=== PATIENT | female | born 1980 | race Caucasian/White ===

== ENCOUNTER 2020-07-30 05:57 | Emergency (ER) | payer OTHER, SELFPAY ==
[2020-07-30 06:14] VITALS: BP 135/92; PULSE 96; RESP 18; TEMP 36.6; O2SAT 96
--- NOTE | 2020-07-30 06:20 | ED.GENADULT ---
HPI - General Adult General Chief complaint: Eye Problems Stated complaint: something in eye Time Seen by Provider: 07/30/20 06:08 History of Present Illness HPI narrative: Patient is a 39-year-old female presents to the emergency department with chief complaint of right eye pain. Patient states that she woke up with pain in her right eye states that it feels as though something was scratching her eye patient states that she may have something in her eye. Patient states that her vision is normal but the eye is extremely painful. Patient denies fever denies runny nose denies illness. Related Data Allergies Allergy/AdvReac Type Severity Reaction Status Date / Time No Known Allergies Allergy Unverified 09/17/18 13:15 Review of Systems Review of Systems: Narrative: A 10 system review of systems was completed on the patient and is negative except for what is stated in the HPI. Nursing and ancillary documentation was reviewed. PMFSH Comments Patient has no significant past medical history Social history the patient denies illicit drug use but reports that she smokes cigarettes Exam Narrative: Exam Narrative: GENERAL: Well-appearing, well-nourished, and in no acute distress. HEAD: Normocephalic, atraumatic. EYES: PERRLA and EOMI, there is a small corneal abrasion present at the 4 o'clock position. ENT: Nares clear, no rhinorrhea or epistaxis. Mucous membranes moist. NECK: Supple. CHEST: Clear to auscultation. No respiratory distress. HEART: Regular rate and rhythm. No murmur heard. Normal peripheral pulses. ABDOMEN: Soft, nontender, nondistended, normal active bowel sounds. EXTREMITIES: Normal range of motion. No edema. SKIN: Warm, dry, no rash. NEURO: No focal deficits. Alert and oriented x3. PSYCH: Normal mood and affect. Course Vital Signs Vital signs: Vital Signs Temperature 36.6 C 07/30/20 06:14 Pulse Rate 96 07/30/20 06:14 Respiratory Rate 18 07/30/20 06:14 Blood Pressure 135/92 H 07/30/20 06:14 Pulse Oximetry 96 07/30/20 06:14 Temperature 36.6 C 07/30/20 06:14 Pulse Rate 96 07/30/20 06:14 Respiratory Rate 18 07/30/20 06:14 Blood Pressure 135/92 H 07/30/20 06:14 Pulse Oximetry 96 07/30/20 06:14 Medical Decision Making Vital Signs Vital Signs: Vital Signs Temperature 36.6 C 07/30/20 06:14 Pulse Rate 96 07/30/20 06:14 Respiratory Rate 18 07/30/20 06:14 Blood Pressure 135/92 H 07/30/20 06:14 Pulse Oximetry 96 07/30/20 06:14 Temperature 36.6 C 07/30/20 06:14 Pulse Rate 96 07/30/20 06:14 Respiratory Rate 18 07/30/20 06:14 Blood Pressure 135/92 H 07/30/20 06:14 Pulse Oximetry 96 07/30/20 06:14 Discharge Plan Discharge Clinical Impression: Corneal abrasion Qualifiers: Encounter type: initial encounter Laterality: right Qualified Code(s): S05.01XA - Injury of conjunctiva and corneal abrasion without foreign body, right eye, initial encounter Patient Disposition: Home, Self-Care Condition: Stable Instructions: Antibiotic Form, Corneal Abrasion (ED) Additional Instructions: Please follow-up with an screw eye assembler in the next 24 to 48 hours [place] [id number], [place] [address] Prescriptions: New gentamicin 0.3 % drops 2 drp EACH EYE Q4H Qty: 5 RF: 0 No Action amoxicillin-pot clavulanate [Augmentin] 875-125 mg tablet 1 tablet PO Q12H 10 Days Qty: 20 RF: 0 Follow-up/Referrals: PHYSICIAN,ASSET PROTECTION SPECIALIST [Primary Care Provider] - Time of Disposition: 06:22
[2020-07-30] MEDS: GENTAMICIN SULFATE 0.3% OP SOL 5 ML BTL 2 DROP RIGHT EYE (06:26)
== END 2020-07-30 06:50 | disposition home or self-care (01) ==
PROVIDERS: Emergency Provider Emergency Medicine
DX: S05.01XA Injury of conjunctiva and corneal abrasion without foreign body, right eye, initial encounter (principal); F17.210 Nicotine dependence, cigarettes, uncomplicated; X58.XXXA Exposure to other specified factors, initial encounter
CPT/HCPCS: 99283; A9270

== ENCOUNTER 2021-09-19 23:16 | Inpatient (IN) | payer OTHER, SELFPAY ==
--- NOTE | ~2021-09-19 | US_ITS ---
EXAMINATION: US venous doppler [facility] DATE: 09/20/2021 08:21 INDICATION: Lower limb swelling. TECHNIQUE: Grayscale ultrasound images without and with compression and Doppler ultrasound images of the bilateral lower extremity veins were obtained. COMPARISON: None. FINDINGS: The visualized portions of right common femoral vein, profunda (deep) femoral vein, femoral vein, pop liteal vein, peroneal veins, posterior tibial veins, and greater saphenous vein outflow are patent. The visualized portions of left common femoral vein, profunda femoral vein, femoral vein, popliteal v ein, peroneal veins, posterior tibial veins, and greater saphenous vein outflow are patent. IMPRESSION: 1. No deep venous thrombosis. Reviewed, dictated and finalized at location A.
--- NOTE | ~2021-09-19 | XR_ITS ---
EXAMINATION: XR chest 1V portable DATE: 09/20/2021 05:47 INDICATION: Fever. TECHNIQUE: A single frontal view of the chest was obtained. COMPARISON: None. FINDINGS: A calcified right lung nodule is consistent with old granulomatous disease. No pleural effu letty or pneumothorax. The heart size is normal. IMPRESSION: 1. No acute cardiopulmonary disease. Reviewed, dictated and finalized at location A.
[2021-09-19 23:30] VITALS: BP 104/64; PULSE 82; RESP 12; TEMP 36.7; O2SAT 100
[2021-09-19 23:44] VITALS: BP 108/72; PULSE 90; RESP 12; O2SAT 100
[2021-09-19 23:45] VITALS: PULSE 84; RESP 12; O2SAT 100
[2021-09-19 23:46] VITALS: BP 106/66; PULSE 85; RESP 12; O2SAT 100
--- NOTE | 2021-09-19 23:57 | ED.EXTPRO ---
HPI - Extremity Problem General Chief complaint: Extremity Problem,Nontraumatic Stated complaint: insect bite Time Seen by Provider: 09/19/21 23:27 Source: patient Mode of arrival: ambulatory Limitations: no limitations History of Present Illness HPI Narrative: 40-year-old female presents emergency room secondary to redness, swelling, and pain to her right leg. She states that been going on for about 5 days. She had been on antibiotics given her by her physician for 4 days. She is on clindamycin 300 mg. Despite this she is continue to have swelling and redness of the leg which is gotten worse. She states she is never had anything like this before. She also has a open ulcerative type lesion on her left lower extremity which is got a little bit of drainage and very erythematous as well. She is not having any chills or fevers. She denies any history of recurrent cellulitis in the past. Patient does admit to a history of IV drug use. She states she had been on Suboxone but she ran out and she did do some IV narcotics about 2 days ago. She denies ever injecting in her legs. She denies any cough or congestion. She has no other medical problems other than anxiety Related Data Home Medications Medication Instructions Recorded Confirmed alprazolam 1 mg PO BID 09/19/21 09/19/21 buprenorphine-naloxone 1 film BUCCAL TID 09/19/21 09/19/21 doxepin 10 mg PO DAILY 09/20/21 09/20/21 Allergies Allergy/AdvReac Type Severity Reaction Status Date / Time No Known Allergies Allergy Verified 09/20/21 03:24 Review of Systems Review of Systems: CONSTITUTIONAL: Denies fever, chills, or sweats. EYES: Denies visual changes, redness, or discharge. ENT: Denies rhinorrhea, congestion, sore throat, or otalgia. CARDIOVASCULAR: Denies chest pain, palpitations, or edema. RESPIRATORY: Denies cough or dyspnea. GASTROINTESTINAL: Denies abdominal pain, nausea, vomiting, or diarrhea. GENITOURINARY: Denies dysuria or hematuria. SKIN: Rash, redness, swelling to the legs MUSCULOSKELETAL: Denies back pain, joint pain, or myalgia. NEUROLOGIC: Denies headache, numbness, or weakness. PSYCHIATRIC: Denies anxiety or depression. [facility] Family History Family History (Updated 09/20/21 @ 04:54 by Suri Rivera RN) Other Unknown family medical history Social History Social History Smoking packs per day: 0.5 Smoking cigarettes per day: 10.0 Years smoked: 23 Smoking pack-years: 11.50 Smoking status: Current every day smoker Tobacco type: cigarettes Alcohol intake: never Substance use: current Substance use type: opiates and IV drugs Last use: 09/19/21 Spiritual care concerns: No Exam Narrative: APPEARANCE: Well appearing, no pain or distress, well-nourished. Head normocephalic and atraumatic. EYES: PERRLA/EOMI, conjunctivae very clear. NOSE: Normal with no drainage EARS:TMS clear Mary Whaley, with good light reflex. THROAT: Pharynx clear, no exudate. NECK: Supple. No adenopathy, no masses. RESPIRATORY: Airway patent, respirations nonlabored. Clear to auscultation bilaterally, no rales, rhonchi, wheezing. CARDIOVASCULAR: Regular rate and rhythm without murmurs, rubs, or gallops. ABDOMINAL: Soft, nontender, nondistended, no hepatosplenomegaly Musculoskeletal: Noted to have extensive swelling, redness, and tenderness to her right extremity from just below the knee all the way down to the foot. Noted to have an ulcerative type lesion to the medial aspect of the left leg mcfp between the knee and ankle with some purulent drainage and erythema to the area. NEURO: Alert. Cranial nerves II through XII intact. Normal gait. Good coordination. Nonfocal examination. SKIN:: Warm, dry. Normal Color PSYCHIATRIC: Normal affect/mood, normal interaction Course Vital Signs Vital signs: Vital Signs Temperature 98.0 F 09/19/21 23:30 Pulse Rate 82 09/19/21 23:30 Respiratory Rate 12
[2021-09-20] VITALS (30 sets, daily range): BP systolic 92–138; BP diastolic 56–86; PULSE 74–90; RESP 11–20; TEMP 35.8–37.2; O2SAT 83–100; BMI 23.3
--- NOTE | 2021-09-20 | ECHO_ITS ---
Patient Info Name: Mckenna Diaz Age: 40 years : 1980 Gender: Female Ht: 60 in Wt: 119 lbs BSA: 1.52 m2 BP: 105 / 68 mmHg Heart Rhythm: Sinus Rhythm Technical Quality: Good Exam Date: 09/20/2021 7:13 AM Exam Location: [facility] Patient Status: Inpatient Admit Date: 09/20/2021 Staff Ordering Physician: Tin Sanchez MD Gas Burner Operator: Tara aMc RDCS Attending Provider: Tin Sanchez MD Referring Physician: Laura BABIN; Exam Type: CA echo doppler color flow Study Info Indications F19.10 - IV DRUG USE Complete two-dimensional, color flow and Doppler transthoracic echocardiogram is performed. Summary 1. Complete two-dimensional, color flow and Doppler transthoracic echocardiogram is performed. 2. Left ventricular chamber dimension is normal. 3. Left ventricular systolic function is normal, estimated at 60-65%. 4. There is no increased left ventricular wall thickness. 5. The left ventricular diastolic function is normal. 6. No significant valvular pathology is seen by transthoracic echocardiography. Left Ventricle Left ventricular chamber dimension is normal. Left ventricular systolic function is normal, estimated at 60-65%. There is no increased left ventricular wall thickness. The left ventricular diastolic function is normal. Right Ventricle Right ventricular chamber dimension is normal. Right ventricular systolic function is normal. Left Atria Left atrial chamber dimension is normal. Right Atria Right atrial chamber dimension is normal. Atrial Septum Intact interatrial septum visualized by color flow imaging. Aortic Valve The aortic valve is trileaflet. There is no aortic valve sclerosis. There is no aortic valve stenosis. There is trace aortic valve regurgitation. Pulmonic Valve The pulmonic valve is normal. There is no pulmonic valve stenosis. There is trace pulmonic regurgitation. Mitral Valve The mitral valve has normal leaflets. There is no mitral valve stenosis. There is trace mitral valve regurgitation. Tricuspid Valve The tricuspid valve leaflets are normal. There is no significant tricuspid valve stenosis. There is trace tricuspid valve regurgitation. Other Findings No significant valvular pathology is seen by transthoracic echocardiography. Pericardium/Pleural The pericardium appears normal. There is no pericardial effusion. Inferior Vena Cava Normal inferior vena cava with >50% collapse upon inspiration consistent with normal right atrial pressure, 5 mmHg. Aorta The aortic root size at the sinus of Valsalva is normal. Left Ventricular Outflow Tract Name Value Normal LVOT 2D LVOT Diameter 1.9 cm LVOT Doppler LVOT Peak Gradient 6 mmHg LVOT Mean Gradient 3 mmHg LVOT VTI 26 cm LVOT VTI/AV VTI Ratio 1.0 LVOT Stroke Volume 73 ml LVOT CO 12.8 l/min LVOT CI 8.4 l/min/m2 Pulmonic V
[2021-09-20 00:45] LABS: Basophils Percent Auto 0.3 % (0.2-1.2); Eosinophils Absolute Auto 0.3 K/mm3 (0-0.3); Hematocrit 33.4 % (37.0-47.0); Immature Granulocyte Absolute 0.12 K/mm3 (0.00-0.031); Lymphocytes Absolute Auto 3.14 K/mm3 (0.9-3.2); Lymphocytes Percent Auto 25.6 % (18.3-44.2); Mean Corpuscular HGB Conc 32.9 g/dl (32-36); Mean Corpuscular Hemoglobin 32.1 pg (26-34); Mean Corpuscular Volume 97.4 fl (80-100); Monocytes Absolute Auto 0.8 K/mm3 (0.1-0.6); Monocytes Percent Auto 6.2 % (2.6-8.5); Neutrophils Percent Auto 64.9 % (45.5-73.1); Platelet Count Result 359 k/mm3 (150-375); Red Blood Count 3.43 M/mm3 (4.2-5.4); Red Cell Distribution Width 13.4 % (11.5-14.5); White Blood Count 12.3 K/mm3 (4.5-10.0)
[2021-09-20] MEDS: MORPHINE SULFATE (*CRX) 4 MG/ML INJ IV PUSH (00:48)
[2021-09-20 00:55] LABS: Alanine Aminotransferase 26 U/L (4-35); Albumin Level 3.6 g/dL (3.5-5.1); Alkaline Phosphatase 91 U/L (38-126); Anion Gap 7 mmol/L (8-16); Aspartate Amino Transferase 26 U/L (14-36); Bilirubin,Total 0.4 mg/dL (0.2-1.3); Blood Urea Nitrogen 16 mg/dL (7-17); Calcium 8.5 mg/dL (8.4-10.2); Carbon Dioxide 31 mmol/L (22-30); Chloride 99 mmol/L (98-107); Estimated CRCL calculation 78 ml/min; Estimated Glomerular Filt Rate > 60; Glucose 118 mg/dL (65-110); Lactic Acid Reflex 1.1 mmol/L (0.7-2.1); Potassium 3.3 mmol/L (3.4-5.0); Sodium 137 mmol/L (137-145)
[2021-09-20 01:32] LABS: Appearance Urine Clear (Clear); Bilirubin Urine 1+ (Negative); Blood Urine Trace-lysed (Negative); Color Urine Yellow (Yellow); Glucose Urine UA Negative (Negative); Ketones Urine Negative (Negative); Leukocyte Esterase Ur Negative LEU/UL (Negative); Nitrate Urine Negative (Negative); Protein Urine Negative (Negative); Specific Grav Ur >= 1.030 (1.001-1.035); pH Urine 5.5 (5.0-9.0)
[2021-09-20 01:41] LABS: Cellular Casts Urine Present /lpf; Mucus Urine Rare /lpf; Squamous Epithelial Cell Urine Few /hpf (Few)
[2021-09-20 01:52] LABS: Add Urine Microscopic? YES
--- NOTE | 2021-09-20 03:10 | ADMGEN ---
This patient, Mckenna Diaz, was admitted to Medical Room 249-01. Patient/family oriented to hospital policies and general routines including ID bracelet, bed and alarms, visiting hours, pain management, procedures, bathroom and other care routines, personal items, smoking policy, room service/diet, and visiting hours. Information on how to activate the Rapid Response Team has been discussed. Patient/Family are encouraged to report perceived risks to care and to ask questions if they do not understand what they are told or what they should do.
--- NOTE | 2021-09-20 04:22 | PM.IMHP ---
H&P: HPI History of Present Illness Date/Time: 09/20/21 04:22 Chief Complaint: Fevers. Narrative: This is a 40-year-old female with past medical history significant for intravenous drug use patient uses mainly fentanyl but as of lately has been snorting, patient smokes half a pack of cigarettes daily. Patient presents to the emergency room due to right lower extremity swelling, warmth, tenderness, for 2 days or so has had fevers, chills, rigors and night sweats as well ,poor appetite and nausea and vomiting. Patient denies any chest pain, shortness of breath, cough, sputum production. Preliminary workup was significant for a CBC with a white count of 12,000. Patient states that she just recently started using IV drugs again. Patient is been admitted for further evaluation, management and treatment. Review of Systems Review of Systems: Right lower extremity swelling, tenderness, redness, warmth, fevers, chills, night sweats, poor appetite, nausea, vomiting. Constitutional: Constitutional: Reports chills, Reports fever(s), Reports malaise, Reports night sweats and Reports poor appetite Eyes: Eyes: Denies change in vision ENT: Denies dysphagia, Denies nasal congestion, Denies nasal discharge, Denies nasal obstruction and Denies odynophagia Cardiovascular: Cardiovascular: Denies chest pain, Denies claudication, Denies radiating jaw, neck or arm pain, Denies palpitations, Denies dyspnea on exertion and Denies orthopnea Respiratory: Respiratory: Denies cough, Denies excessive phlegm production and Denies dyspnea Gastrointestinal: Gastrointestinal: Denies abdominal pain, Denies dyspepsia, Denies heartburn, Reports nausea and Reports vomiting Genitourinary: Genitourinary: Denies dysuria Musculoskeletal: Musculoskeletal: Reports other (Right lower extremity swelling) Integumentary/Breasts: Skin/Breast: Reports swelling, Reports change in pigmentation and Reports skin swelling Neurologic: Denies focal weakness and Denies Sensory deficit (Neuro) Psychiatric: Psychiatric: Reports no additional psychiatric complaints and Reports as per HPI Endocrine: Endocrine: Denies cold intolerance, Denies fatigue, Denies flushing, Denies heat intolerance, Denies polyphagia, Denies polydipsia and Denies palpitations Hematologic/Lymphatic: Hematologic/Lymphatic: Reports no additional hematologic/lymphatic complaints and Reports as per HPI Allergic/Immunologic: Allergic/Immunologic: Reports no additional allergic/immunologic complaints and Reports as per [facility] Family History Family History (Updated 09/20/21 @ 04:54 by Suri Rivera RN) Other Unknown family medical history Social History Social History Smoking packs per day: 0.5 Smoking cigarettes per day: 10.0 Years smoked: 23 Smoking pack-years: 11.50 Smoking status: Current every day smoker Tobacco type: cigarettes Alcohol intake: never Substance use: current Substance use type: opiates and IV drugs Last use: 09/19/21 Spiritual care concerns: No Meds Home Medications and Allergies Home Medications Medication Instructions Recorded Confirmed Type alprazolam 1 mg PO BID 09/19/21 09/19/21 History buprenorphine-naloxone 1 film BUCCAL TID 09/19/21 09/19/21 History doxepin 10 mg PO DAILY 09/20/21 09/20/21 History Allergies Allergy/AdvReac Type Severity Reaction Status Date / Time No Known Allergies Allergy Verified 09/20/21 03:24 Vital Signs Vital Signs - 24 hr 09/19/21 23:30 09/19/21 23:44 09/19/21 23:45 Temperature 98.0 F Pulse Rate 82 90 84 Respiratory Rate 12 12 12 Blood Pressure 104/64 108/72 Pulse Oximetry 100 100 100 09/19/21 23:46 09/20/21 00:00 09/20/21 00:01 Temperature Pulse Rate 85 86 78 Respiratory Rate 12 16 14 Blood Pressure 106/66 104/64 Pulse Oximetry 100 99 100 09/20/21 00:15 09/20/21 00:16 09/20/21 00:30 Temperature Pulse Rate 78 76 79 Respira
[2021-09-20] MEDS: POTASSIUM CHLORIDE 20 MEQ TABLET 40 MEQ PO (10:15)
[2021-09-20] MEDS: ALPRAZolam (*CRX) 0.5 MG TABLET 1 MG PO ×2 (10:16→17:50)
[2021-09-20] MEDS: ENOXAPARIN 40 MG/0.4 ML SYRINGE SUB-Q (10:16)
[2021-09-20] MEDS: DOXEPIN HCL 10 MG CAPSULE PO (10:16)
--- NOTE | 2021-09-20 11:50 | PM.IMPN ---
Progress Note: A&P Assessment and Plan (1) Cellulitis of leg, right: Code(s): L03.115 - Cellulitis of right lower limb Status: Acute Assessment and Plan: Vancomycin plus Zosyn BC PENDING Venous Doppler NEGATIVE ECHO NEGATIVE (2) Active intravenous drug use: Code(s): F19.90 - Other psychoactive substance use, unspecified, uncomplicated Status: Acute Assessment and Plan: Wishes to try Vivitrol as outpatient (3) Tobacco dependence due to cigarettes: Code(s): F17.210 - Nicotine dependence, cigarettes, uncomplicated Status: Acute Assessment and Plan: Nicotine patch as needed Subjective Date/time seen: 09/20/21 11:50 Interval history: 09/20: Admitted 09/19 for cellulitis RLE. Feels better today. Last fentanyl use inhaled 09/19. Prior IV/SC use. Denied w/d sx's. Previously failed course of Suboxone. Wants to quit and avoid all narcotics with Vivitrol. Review of Systems Review of Systems: All systems reviewed & are unremarkable except as noted in HPI and below Exam Narrative: HEENT: PERRL, sclerae nonicteric, pharyngeal mucosa pink and intact NECK: No JVD, adenopathy, or thyromegaly CHEST: COARSE BS. Normal effort. HEART: NL S1/S2, regular, no murmur ABDOMEN: BS+, soft, nontender, no mass, no bruits EXTREMITIES: RLE WITH ERYTHEMA, INDURATION, NONPITTING EDEMA TO KNEE NEUROLOGIC: CN intact and symmetric to inspection. MUSCULOSKELETAL: Tone and strength symmetric. PSYCH: Alert. Oriented to person, place, and time. Objective Data Vital Signs Vital Signs: Vital Signs - 24 hr 09/19/21 23:30 09/19/21 23:44 09/19/21 23:45 Temperature 98.0 F Pulse Rate 82 90 84 Respiratory Rate 12 12 12 Blood Pressure 104/64 108/72 Pulse Oximetry 100 100 100 09/19/21 23:46 09/20/21 00:00 09/20/21 00:01 Temperature Pulse Rate 85 86 78 Respiratory Rate 12 16 14 Blood Pressure 106/66 104/64 Pulse Oximetry 100 99 100 09/20/21 00:15 09/20/21 00:16 09/20/21 00:30 Temperature Pulse Rate 78 76 79 Respiratory Rate 12 11 L 15 Blood Pressure 93/59 L 92/65 L Pulse Oximetry 100 99 100 09/20/21 00:31 09/20/21 00:45 09/20/21 00:46 Temperature Pulse Rate 79 83 81 Respiratory Rate 14 15 13 Blood Pressure 110/70 Pulse Oximetry 100 09/20/21 01:18 09/20/21 01:20 09/20/21 01:30 Temperature Pulse Rate 90 83 87 Respiratory Rate 17 16 16 Blood Pressure 113/68 Pulse Oximetry 97 83 L 09/20/21 01:31 09/20/21 01:45 09/20/21 01:46 Temperature Pulse Rate 82 77 76 Respiratory Rate 15 11 L 13 Blood Pressure 99/56 L 105/71 Pulse Oximetry 96 09/20/21 02:00 09/20/21 02:01 09/20/21 02:15 Temperature Pulse Rate 74 74 80 Respiratory Rate 12 11 L 12 Blood Pressure 112/76 107/69 Pulse Oximetry 100 100 100 09/20/21 02:16 09/20/21 02:30 09/20/21 02:31 Temperature Pulse Rate 78 78 77 Respiratory Rate 13 13 13 Blood Pressure 101/63 Pulse Oximetry 100 97 98 09/20/21 02:45 09/20/21 02:46 09/20/21 03:00 Temperature Pulse Rate 74 77 76 Respiratory Rate 12 14 13 Blood Pressure 104/70 103/61 Pulse Oximetry 100 100 100 09/20/21 03:01 09/20/21 03:16 09/20/21 03:17 Temperature 96.5 F L 96.5 F L Pulse Rate 77 75 75 Respiratory Rate 12 16 16 Blood Pressure 105/68 105/68 Pulse Oximetry 100 100 100 09/20/21 04:14 09/20/21 09:23 Temperature Pulse Rate Respiratory Rate Blood Pressure Pulse Oximetry 100 100 Intake/Output Intake/Output: Intake & Output 09/17/21 09/18/21 09/19/21 09/20/21 23:59 23:59 23:59 23:59 Intake Total 490 Balance 490 Meds/Results Medications: Active Medications Generic Name Dose Route Start Last Admin Trade Name Freq PRN Reason Stop Dose Admin Acetaminophen 650 mg 09/20/21 04:51 Acetaminophen 325 Mg Tablet PO Q6H PRN Mild Pain (1-3) or Fever Alprazolam 1 mg 09/20/21 09:00 09/20/21 10:16 Alprazolam (*Crx) 0.5 Mg Tablet PO 1 mg
[2021-09-20] MEDS: GABAPENTIN 100 MG CAPSULE PO ×3 (13:03→20:01)
[2021-09-20] MEDS: KETOROLAC 30 MG/ML VIAL (*BKC) IV PUSH (20:00)
[2021-09-20 22:09] LABS: Amphetamine Screen Urine Negative (Negative); Barbiturate Screen Urine Negative (Negative); Benzodiazepines Screen Urine Positive (Negative); Cannabinoid Screen Urine Positive (Negative); Cocaine Screen Urine Positive (Negative); Methadone Screen Urine Negative (Negative); Opiate Screen Urine Positive (Negative); Phencyclidine Screen Urine Negative (Negative)
[2021-09-21 03:51] VITALS: BP 100/80; PULSE 88; RESP 16; TEMP 36.2; O2SAT 97
[2021-09-21 05:17] LABS: Hematocrit 38.7 % (37.0-47.0); Hemoglobin 12.3 g/dL (12.0-15.0); Mean Corpuscular HGB Conc 31.8 g/dl (32-36); Mean Corpuscular Hemoglobin 31.9 pg (26-34); Mean Corpuscular Volume 100.3 fl (80-100); Mean Platelet Volume 8.7 fl (7.4-10.4); Platelet Count Result 377 k/mm3 (150-375); Red Blood Count 3.86 M/mm3 (4.2-5.4); Red Cell Distribution Width 13.8 % (11.5-14.5)
[2021-09-21 05:34] LABS: Anion Gap 5 mmol/L (8-16); Blood Urea Nitrogen 9 mg/dL (7-17); CRP 7.7 mg/dL (<1.0); Calcium 7.7 mg/dL (8.4-10.2); Carbon Dioxide 28 mmol/L (22-30); Chloride 104 mmol/L (98-107); Estimated CRCL calculation 91 ml/min; Estimated Glomerular Filt Rate > 60; Glucose 113 mg/dL (65-110); Magnesium 2.3 mg/dL (1.6-2.3); Potassium 3.8 mmol/L (3.4-5.0); Sodium 137 mmol/L (137-145)
[2021-09-21 06:09] LABS: HIV 1/2 Ab P24 Ag Result Negative (Negative)
[2021-09-21] MEDS: LORazepam INJ (*CRX) 2 MG/ML VIAL 1 MG IV PUSH (06:34)
[2021-09-21] MEDS: KETOROLAC 30 MG/ML VIAL (*BKC) IV PUSH (06:34)
--- NOTE | 2021-09-21 08:45 | PC.NURSE ---
Patient asked this morning if she was allowed to walk the unit. She was informed that she could walk around the entirety of 2 med (and was shown the unit). She was informed that she was not to leave the floor. Patient was seen walking around the unit by multiple staff members. At approximately 0815, the patient was unable to be found in her room and her belongings were gone. Stephanie Sarabia with security reported having seen the patient around 0745 walking out the front door to wait for the bus. The patient did not inform any staff of her desire to leave and left with her IV intact. Of note, the patient has a history of IV drug use and had a positive urine toxicology report yesterday, 09/20. The patient was called and informed that she needed to come and have her IV removed and that she had left her phone train electronic technician in her room. She did not answer and so the [place] police were called and informed of the situation. Will await phone call from either patient or police.
--- NOTE | 2021-09-21 10:38 | PM.DS ---
DS: Admitting Diagnosis Discharge Date 09/21/21: PATIENT LEFT SURREPTITIOUSLY PRIOR TO BEING SEEN BY PROVIDER Admitting Diagnosis CELLULITIS RIGHT LOWER EXTREMITY DS: Discharge Diagnosis Discharge Diagnosis (1) Cellulitis of leg, right: Code(s): L03.115 - Cellulitis of right lower limb Status: Acute Assessment and Plan: Vancomycin plus Zosyn interrupted due to patient leaving AMA on 09/21/2021 some time during the AM. BC PENDING Venous Doppler NEGATIVE ECHO NEGATIVE (2) Active intravenous drug use: Code(s): F19.90 - Other psychoactive substance use, unspecified, uncomplicated Status: Acute Assessment and Plan: Initially wished try Vivitrol as outpatient but succumbed to her urge to absquatulate (3) Tobacco dependence due to cigarettes: Code(s): F17.210 - Nicotine dependence, cigarettes, uncomplicated Status: Acute Assessment and Plan: Nicotine patch as needed while hospitalized DS: Summary Hospital Course Reason for hospitalization: Right leg pain and swelling Hospital Course: Patient was admitted for right leg pain and swelling. History of intravenous and subcutaneous drug abuse. Fentanyl. Recently treated with Suboxone unsuccessfully. Last use of fentanyl was the day of admission but was inhaled. Received vancomycin and Zosyn intravenously. Right leg pain swelling and redness improved dramatically. Patient eloped with IV intact prior to being seen by provider and after morning rounds by RN. Staff notified local police who were unable to locate the patient. Status at Discharge Functional status at discharge: independent ambulation Time Spent with Patient Time attestation: Total time spent providing and/or coordinating discharge services: Time spent: Greater than 30 minutes Exam Narrative: Unable to examine on day of discharge. DS: Data Data Completed and Pending Labs on day of discharge: Labs from last 24 hours 09/21/21 09/21/21 09/21/21 04:49 04:49 04:49 WBC 8.0 RBC 3.86 L Hgb 12.3 Hct 38.7 MCV 100.3 H MCH 31.9 MCHC 31.8 L RDW 13.8 Plt Count 377 H MPV 8.7 Sodium 137 Potassium 3.8 Chloride 104 Carbon Dioxide 28 Anion Gap 5 L BUN 9 D Creatinine 0.50 L Estim Creat Clear Calc 91 Estimated GFR > 60 Glucose 113 H Calcium 7.7 L Magnesium 2.3 C-Reactive Protein 7.7 H Urine Opiates Screen Urine Methadone Screen Ur Barbiturates Screen Ur Phencyclidine Scrn Ur Amphetamine Screen U Benzodiazepines Scrn Urine Cocaine Screen U Cannabinoids Screen HIV 1&2 Ab/P24 Ag 4thGn Negative 09/20/21 01:24 WBC RBC Hgb Hct MCV MCH MCHC RDW Plt Count MPV Sodium Potassium Chloride Carbon Dioxide Anion Gap BUN Creatinine Estim Creat Clear Calc Estimated GFR Glucose Calcium Magnesium C-Reactive Protein Urine Opiates Screen Positive A Urine Methadone Screen Negative Ur Barbiturates Screen Negative Ur Phencyclidine Scrn Negative Ur Amphetamine Screen Negative U Benzodiazepines Scrn Positive A Urine Cocaine Screen Positive A U Cannabinoids Screen Positive A HIV 1&2 Ab/P24 Ag 4thGn Preliminary micro results at discharge 09/20/21 00:36 Blood Culture - Preliminary Blood 09/20/21 00:36 Blood Culture - Preliminary Blood Discharge Plan Discharge Consulting providers: Janes Lu Discharging Clinician: Danny Owusu Patient Disposition: Elopement After Seen by Prov Activity: other - see discharge instructions Diet: other - see discharge instructions Discharge Instructions: No discharge instructions were provided as the patient surreptitiously left AMA. Patient Instructions: How to Stop Smoking (DC) Follow-up/Referrals: PHYSICIAN,IT NETWORK ADMINISTRATOR [Primary Care Provider] - Call for Appointment Discharge Medications: Continued alprazolam 1 mg tablet 1 mg PO BID
== END 2021-09-21 08:15 | disposition left against medical advice (07) | DRG 383 ==
LOC: ANHED 09-20 01:41 → ANH2MED 09-20 04:11
PROVIDERS: Admitting Provider Internal Medicine; Emergency Provider Emergency Medicine; Visit Provider Internal Medicine
DX: L03.115 Cellulitis of right lower limb (principal); F19.90 Other psychoactive substance use, unspecified, uncomplicated; F11.10 Opioid abuse, uncomplicated; F17.210 Nicotine dependence, cigarettes, uncomplicated
CPT/HCPCS: 36415; 71045; 80048; 80053; 80307; 81001; 81025; 83605; 83735; 85025; 85027; 86140; 86703; 87040; 93306; 93970; 96365; 96375; 99285; A9270; G0432; J1650; J1885; J2060; J2270; J3370

== ENCOUNTER 2021-09-21 21:09 | Observation (INO) | payer OTHER, SELFPAY ==
[2021-09-21 21:10] VITALS: BP 124/86; PULSE 107; RESP 18; TEMP 36.7; O2SAT 100
--- NOTE | 2021-09-21 22:35 | ED.GENADULT ---
HPI - General Adult General Chief complaint: Recheck/Abnormal Lab/Rx Stated complaint: wanting readmitted after leaving [employer] [facility] Time Seen by Provider: 09/21/21 22:22 Source: patient, RN notes reviewed and old records reviewed Mode of arrival: ambulatory Limitations: no limitations History of Present Illness HPI narrative: 40-year-old female with history of substance abuse presenting to the emergency department for evaluation of a worsening cellulitis of the right lower extremity. Patient had redness of her right lower extremity starting over a week ago. Patient did have follow-up with her primary care physician and was started on clindamycin as outpatient. Patient states that she took the p.o. Clinda for prior 3 days and then presented to the emergency department for evaluation of worsening symptoms. At that time patient was admitted and started on Vanco and Zosyn IV. Patient left [facility] this morning AMA stating that she had to deal with some issues regarding her children . Patient left with her IV in place and police were unable to track her down during the day. Patient reports since being discharged that her right lower extremity erythema has begun to worsen again. Patient is requesting to be readmitted. Patient states that she regrets leaving and that she will not leave AMA again. Related Data Home Medications Medication Instructions Recorded Confirmed alprazolam 1 mg PO BID 09/19/21 09/19/21 buprenorphine-naloxone 1 film BUCCAL TID 09/19/21 09/19/21 doxepin 10 mg PO DAILY 09/20/21 09/20/21 Allergies Allergy/AdvReac Type Severity Reaction Status Date / Time No Known Allergies Allergy Verified 09/20/21 03:24 Review of Systems Review of Systems: CONSTITUTIONAL: Denies fever, chills, or sweats. EYES: Denies visual changes, redness, or discharge. ENT: Denies rhinorrhea, congestion, sore throat, or otalgia. CARDIOVASCULAR: Denies chest pain, palpitations, or edema. RESPIRATORY: Denies cough or dyspnea. GASTROINTESTINAL: Denies abdominal pain, nausea, vomiting, or diarrhea. GENITOURINARY: Denies dysuria or hematuria. SKIN: Erythema of right lower extremity MUSCULOSKELETAL: Denies back pain, joint pain, or myalgia. NEUROLOGIC: Denies headache, numbness, or weakness. All systems reviewed & are unremarkable except as noted in HPI and below [facility] Family History Family History (Updated 09/20/21 @ 04:54 by Suri Rivera RN) Other Unknown family medical history Social History Social History Smoking packs per day: 0.5 Smoking cigarettes per day: 10.0 Years smoked: 23 Smoking pack-years: 11.50 Smoking status: Current every day smoker Tobacco type: cigarettes Alcohol intake: never Substance use: current Substance use type: opiates and IV drugs Last use: 09/19/21 Spiritual care concerns: No Exam Narrative: APPEARANCE: Well appearing, no pain, no distress, well-nourished. HEAD: normocephalic, atraumatic. EYES: PERRLA/EOMI, conjunctivae clear. NECK: Supple. No adenopathy, no masses. RESPIRATORY: Airway patent, respirations nonlabored. Clear to auscultation bilaterally, no rales, rhonchi, wheezing. CARDIOVASCULAR: Regular rate and rhythm without murmurs rubs or gallops. ABDOMINAL: Soft, nontender, nondistended, normal bowel sounds MUSCULOSKELETAL: Moves all extremities. Strength/ROM intact, No edema, No calf tenderness. NEURO: Alert. Cranial nerves II through XII intact. Grossly intact SKIN: Erythema and edema of right lower extremity. Course Course Emergency Course: Patient was restarted on Vanco and Zosyn. Labs were repeated along with blood cultures. Case was discussed with the hospitalist and patient was accepted for observation. Vital Signs Vital signs: Vital Signs Temperature 98.1 F 09/21/21 21:10 Pulse Rate 107 H 09/21/21 21:10 Respiratory Rate 18 09/21/21 21:10 Blood Pressure 124/86 09/21/21 21:10 Pu
--- NOTE | 2021-09-21 23:26 | PC.NURSE ---
This RN attempted blood draw x1. Stick initially had blood flow, but then quickly stopped giving blood. This RN took needle out of pts arm and informed her of need for second stick. Pt immediately began agitated and stated youre just fucking with me. This shouldnt be this hard. I should talk to your head nurse . This RN explained to pt that her previous hx of IV drug use can make getting lab work more challenging. Pt continued to verbally escalate towards this RN. RN exited room and called phlebotomy for blood draw. ED charge notified.
[2021-09-21 23:57] LABS: Basophils Absolute Auto 0.1 K/mm3 (0.0-0.1); Basophils Percent Auto 0.6 % (0.2-1.2); Eosinophils Absolute Auto 0.2 K/mm3 (0-0.3); Eosinophils Percent Auto 2.6 % (0-4.4); Hemoglobin 11.7 g/dL (12.0-15.0); Immature Granulocyte Absolute 0.06 K/mm3 (0.00-0.031); Immature Granulocyte Percent A 0.7 % (0-0.5); Lymphocytes Absolute Auto 2.53 K/mm3 (0.9-3.2); Lymphocytes Percent Auto 29.7 % (18.3-44.2); Mean Corpuscular HGB Conc 31.6 g/dl (32-36); Mean Corpuscular Hemoglobin 31.4 pg (26-34); Mean Corpuscular Volume 99.2 fl (80-100); Mean Platelet Volume 8.6 fl (7.4-10.4); Monocytes Absolute Auto 0.6 K/mm3 (0.1-0.6); Monocytes Percent Auto 6.4 % (2.6-8.5); Neutrophils Absolute Auto 5.1 K/mm3 (1.3-6.7); Platelet Count Result 470 k/mm3 (150-375); Red Blood Count 3.73 M/mm3 (4.2-5.4); Red Cell Distribution Width 13.6 % (11.5-14.5); White Blood Count 8.5 K/mm3 (4.5-10.0)
[2021-09-22 00:03] VITALS: BP 96/67; PULSE 92; RESP 18; O2SAT 99
[2021-09-22 00:07] LABS: Alanine Aminotransferase 18 U/L (4-35); Albumin Level 3.8 g/dL (3.5-5.1); Alkaline Phosphatase 82 U/L (38-126); Anion Gap 6 mmol/L (8-16); Aspartate Amino Transferase 26 U/L (14-36); Bilirubin,Total 0.2 mg/dL (0.2-1.3); Blood Urea Nitrogen 16 mg/dL (7-17); Calcium 8.8 mg/dL (8.4-10.2); Carbon Dioxide 35 mmol/L (22-30); Chloride 99 mmol/L (98-107); Estimated CRCL calculation 78 ml/min; Estimated Glomerular Filt Rate > 60; Glucose 90 mg/dL (65-110); Potassium 3.9 mmol/L (3.4-5.0); Sodium 140 mmol/L (137-145)
[2021-09-22 00:16] LABS: CRP 6.4 mg/dL (<1.0)
[2021-09-22 00:34] LABS: Erythrocyte Sedimentation Rate 51 mm/hr (0-20)
[2021-09-22 01:16] VITALS: BP 99/77; PULSE 74; RESP 16; O2SAT 99
[2021-09-22 01:31] VITALS: BP 105/91; PULSE 93; RESP 14; O2SAT 96
--- NOTE | 2021-09-22 02:01 | PC.NURSE ---
Addendum entered by Abigail Hamilton RN 09/22/21 02:12: IV removed and security called to escort patient Original Note: Pt arrived to floor explained that door needed to remain open due to eloping earlier today. Pt became agitated cursing at Damian and stated she would leave.
--- NOTE | 2021-09-22 02:22 | PM.IMHP ---
H&P: HPI History of Present Illness Date/Time: 09/22/21 02:22 Chief Complaint: Leg infection Narrative: Immediately after arriving to the medical floor the patient became upset that nursing staff would not let her close her door. With the patient having history of IV drug use there was concern about the patient is using IV access for further drug administration. Patient door was to remain open for patient's safety concerns. The patient refused and left AMA. This is the 2nd time the patient has left AMA in under 24 hours. The patient left prior to my evaluation. I did not see or examine this patient. Of note the patient had had 3 days of clindamycin as outpatient. However her outpatient dosing of clindamycin was 300 mg b.i.d. or more appropriate dosing for cellulitis according to pharmacy would of been at least 600 mg q.8 hours. [facility] Family History Family History (Updated 09/20/21 @ 04:54 by Suri Rivera RN) Other Unknown family medical history Social History Social History Smoking packs per day: 0.5 Smoking cigarettes per day: 10.0 Years smoked: 23 Smoking pack-years: 11.50 Smoking status: Current every day smoker Tobacco type: cigarettes Alcohol intake: never Substance use: current Substance use type: opiates and IV drugs Last use: 09/19/21 Spiritual care concerns: No Meds Home Medications and Allergies Home Medications Medication Instructions Recorded Confirmed Type alprazolam 1 mg PO BID 09/19/21 09/19/21 History buprenorphine-naloxone 1 film BUCCAL TID 09/19/21 09/19/21 History doxepin 10 mg PO DAILY 09/20/21 09/20/21 History Allergies Allergy/AdvReac Type Severity Reaction Status Date / Time No Known Allergies Allergy Verified 09/20/21 03:24 Vital Signs Vital Signs - 24 hr 09/21/21 21:10 09/22/21 00:03 09/22/21 01:16 Temperature 98.1 F Pulse Rate 107 H 92 74 Respiratory Rate 18 18 16 Blood Pressure 124/86 96/67 L 99/77 L Pulse Oximetry 100 99 99 09/22/21 01:31 Temperature Pulse Rate 93 Respiratory Rate 14 Blood Pressure 105/91 H Pulse Oximetry 96 H&P: Results Labs Labs: Short CBC 09/21/21 Range/Units 23:47 WBC 8.5 (4.5-10.0) K/mm3 Hgb 11.7 L (12.0-15.0) g/dL Hct 37.0 (37.0-47.0) % Plt Count 470 H (150-375) k/mm3 BMP 09/21/21 23:47 Sodium 140 Potassium 3.9 Chloride 99 Carbon Dioxide 35 H BUN 16 Creatinine 0.60 L Glucose 90 Calcium 8.8 Liver Function 09/21/21 Range/Units 23:47 Total Bilirubin 0.2 (0.2-1.3) mg/dL AST 26 (14-36) U/L ALT 18 (4-35) U/L Alkaline Phosphatase 82 (38-126) U/L Albumin 3.8 (3.5-5.1) g/dL Assessment and Plan Assessment and plan (1) Cellulitis of leg, right: Code(s): L03.115 - Cellulitis of right lower limb Status: Acute (2) Active intravenous drug use: Code(s): F19.90 - Other psychoactive substance use, unspecified, uncomplicated Status: Acute (3) Tobacco dependence due to cigarettes: Code(s): F17.210 - Nicotine dependence, cigarettes, uncomplicated Status: Acute
== END 2021-09-22 02:20 | disposition left against medical advice (07) ==
LOC: ANHED 23:51 → ANH2MED 09-22 01:37
PROVIDERS: Admitting Provider Internal Medicine; Emergency Provider Emergency Medicine; Visit Provider Internal Medicine
DX: L03.115 Cellulitis of right lower limb (principal); F17.210 Nicotine dependence, cigarettes, uncomplicated; F19.90 Other psychoactive substance use, unspecified, uncomplicated
CPT/HCPCS: 36415; 80053; 83605; 85025; 85652; 86140; 87040; 96365; 96375; 99285; G0378; G0379; J2543; J3370

== ENCOUNTER 2022-10-12 19:13 | Emergency (ER) | payer OTHER, SELFPAY ==
[2022-10-12 19:20] VITALS: BP 108/76; PULSE 93; RESP 16; TEMP 36.6; O2SAT 98
--- NOTE | 2022-10-12 19:26 | ED.GENADULT ---
HPI - General Adult General Stated complaint: right leg injury/need meds Time Seen by Provider: 10/12/22 19:26 Source: patient, RN notes reviewed and old records reviewed Mode of arrival: ambulatory Limitations: no limitations History of Present Illness HPI narrative: 41-year-old female presents to the [facility] with right lower leg redness, swelling, pain for the last 2-3 days. 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 Circumferential cellulitis to the right lower leg, right foot. Plus one pulse Multiple open areas draining thick yellow purulent drainage Onset (ago): day(s) (2-3) Location: lower extremity (Right lower leg) Severity: severe Treatments prior to arrival: none Related Data Home Medications Medication Instructions Recorded Confirmed alprazolam 1 mg tablet 1 mg PO BID 09/19/21 10/12/22 Allergies Allergy/AdvReac Type Severity Reaction Status Date / Time No Known Allergies Allergy Verified 09/20/21 03:24 Review of Systems Review of Systems: All systems reviewed & are unremarkable except as noted in HPI and below Constitutional: Constitutional: Reports no additional constitutional complaints Eyes: Eyes: Reports no additional eye complaints ENT: Reports system reviewed and no additional complaints, except as documented Cardiovascular: Cardiovascular: Reports no additional cardiovascular complaints, Denies chest pain and Denies dyspnea Respiratory: Respiratory: Reports no additional respiratory complaints, Denies chest congestion, Denies cough and Denies dyspnea Gastrointestinal: Gastrointestinal: Reports no additional gastrointestinal complaints, Denies abdominal pain, Denies nausea and Denies vomiting Musculoskeletal: Musculoskeletal: Reports as per HPI Integumentary/Breasts: Skin/Breast: Reports system reviewed and no additional complaints, except as docu Neurologic: Reports system reviewed and no additional complaints, except as documented Psychiatric: Psychiatric: Reports no additional psychiatric complaints Allergic/Immunologic: Allergic/Immunologic: Reports no additional allergic/immunologic complaints [facility] Past Medical History Medical History (Updated 10/12/22 @ 19:43 by Diana Sherman APRN) Active intravenous drug use Anxiety Family History Family History Other Unknown family medical history Social History Social History Smoking packs per day: 0.5 Smoking cigarettes per day: 10.0 Years smoked: 23 Smoking pack-years: 11.50 Smoking status: Current every day smoker Tobacco type: cigarettes Alcohol intake: never Substance use: current Substance use type: opiates and IV drugs Last use: 09/19/21 Spiritual care concerns: No Comments At the time of my signature, I reviewed and agree with the nursing past medical, surgical, social, and family history. There is no relevant family history pertinent to the patient complaint. Exam Const: General: cooperative, healthy appearing, well developed, alert, in distress moderate (Pain), anxious, poor hygiene, uncomfortable, well nourished and other (Appears older than stated age) Nutritional Appearance: well nourished Orientation/consciousness: patient oriented x3 Limitations: no limitations HENMT: Head: normal to inspection Ears: hearing grossly normal bilaterally and external ears normal Face/Nose/Sinus: Normal external nose present, Normal nares present, Normal nasal mucous membranes and turbinates present and normal facial exam Face and sinus: normal facial exam Eyes: General: appearance normal, both eyes and all related structures Alignment and Position: alignment normal Periorbital: periorbital findings normal Conjunctivae: conjunctivae normal Pupils: Equal, round and reactive pupils present EOM: EOMs intact bilaterally
== END 2022-10-12 19:44 | disposition short-term general hospital (02) ==
PROVIDERS: Emergency Provider Nurse Practitioner
DX: L03.115 Cellulitis of right lower limb (principal); F41.9 Anxiety disorder, unspecified; F17.210 Nicotine dependence, cigarettes, uncomplicated
CPT/HCPCS: 99212; G0463